=== PATIENT | female | born 1980 | race Two or more races ===

== ENCOUNTER 2022-02-05 10:27 | Emergency (ER) | payer OTHER ==
[~2022-02-05] VITALS: Ht 160 cm; Wt 68.0 kg
== END 2022-02-05 13:15 | disposition home or self-care (01) ==
LOC: ER 10:27
DX: M62.838 Other muscle spasm (principal); M54.9 Dorsalgia, unspecified

== ENCOUNTER 2023-10-12 00:43 | Inpatient (IN) | payer OTHER ==
[~2023-10-12] VITALS: Ht 160 cm; Wt 63.5 kg
[2023-10-12 04:12] LABS: HEMATOCRIT 25.3 % (36.0-45.00); MEAN CELL VOLUME 73.5 fL (80.00-100.00); MEAN CORPUSCULAR HEMOGLOBIN 24.9 pg (27.00-32.0); MEAN CORPUSCULAR HGB CONC 33.9 g/dl (32.0-36.0); PLATELET COUNT 389 K/uL (150-450); RED BLOOD COUNT 3.45 M/uL (4.00-6.00); RED CELL DISTRIBUTION WIDTH 17.2 % (11.5-14.5)
[2023-10-12 04:24] LABS: ALBUMIN 2.8 gm/dL (3.4-5.0); ALKALINE PHOSPHATASE 56 U/L (50-136); ALT/SGPT 32 U/L (12-78); ANION GAP 11 (10.0-20.0); AST/SGOT 40 U/L (15-37); BILIRUBIN TOTAL 0.38 mg/dL (0.3-1.2); BLOOD UREA NITROGEN 4 mg/dL (7-18); BUN CREA RATIO 8 (7.0-25.0); CALCIUM 8.9 mg/dL (8.5-10.1); CARBON DIOXIDE 25 mEq/L (21-32); CHLORIDE 104 mmol/L (98-107); CREATININE SERUM 0.49 mg/dL (0.55-1.02); GFR 136.57; GLUCOSE FASTING 102 mg/dL (65-100); OSMOLALITY SERUM 271 MOSM/KG (275-295); SODIUM 137 mmol/L (136-145); TOTAL PROTEIN 6.8 gm/dL (6.4-8.2)
[2023-10-12 04:27] LABS: HCG QUANTITATIVE < 1 mUI/mL (1-3)
[2023-10-12 04:32] LABS: HEMOGLOBIN 8.6 g/dL (12.0-15.00)
[2023-10-12 04:33] LABS: URINE APPEARANCE Clear; URINE BILIRRUBIN Negative (NEGATIVE); URINE BLOOD Negative; URINE COLOR Yellow; URINE GLUCOSE Negative (NEGATIVE); URINE LEUKOCYTE Negative; URINE NITRATE Negative; URINE PROTEIN Negative (NEGATIVE); URINE UROBILINOGEN 0.2 E.U./dl
[2023-10-12 04:36] LABS: URINE BACTERIA 6.2 uL (0.0-1933); URINE EPITHELIAL CELLS 7.7 uL (0.0-38.8); URINE RBC 6.8 uL (0.0-20.8)
[2023-10-12 04:42] LABS: INR 1.26; PARTIAL THROMBOPLASTIN TIME 32.7 SECONDS (22.0-34.0)
[2023-10-12 15:03] LABS: HEMATOCRIT 27.7 % (36.0-45.00); HEMOGLOBIN 9.3 g/dL (12.0-15.00); MEAN CELL VOLUME 73.9 fL (80.00-100.00); MEAN CORPUSCULAR HEMOGLOBIN 24.8 pg (27.00-32.0); MEAN CORPUSCULAR HGB CONC 33.4 g/dl (32.0-36.0); PLATELET COUNT 432 K/uL (150-450); RED BLOOD COUNT 3.75 M/uL (4.00-6.00); RED CELL DISTRIBUTION WIDTH 17.1 % (11.5-14.5)
[2023-10-14 17:28] LABS: HEMATOCRIT 34.9 % (36.0-45.00); HEMOGLOBIN 11.5 g/dL (12.0-15.00); MEAN CELL VOLUME 77.5 fL (80.00-100.00); MEAN CORPUSCULAR HEMOGLOBIN 25.5 pg (27.00-32.0); MEAN CORPUSCULAR HGB CONC 32.9 g/dl (32.0-36.0); PLATELET COUNT 425 K/uL (150-450); RED CELL DISTRIBUTION WIDTH 17.2 % (11.5-14.5)
[2023-10-16] MEDS ORDERED: MORGIDOX100 MG PO (14:18)
== END 2023-10-16 15:09 | disposition home or self-care (01) | DRG 759 ==
LOC: ER 00:43 → SEC-K 14:42 → OB/GYN 14:42
PROVIDERS: General Practice; ADMIT Obstetrics & Gynecology; ATTEND Obstetrics & Gynecology
PROC: BW21YZZ Computerized Tomography (CT Scan) of Abdomen and Pelvis using Other Contrast (ICD-10-PCS; principal; 2023-10-12)
PROC: BU4CZZZ Ultrasonography of Uterus and Ovaries (ICD-10-PCS; 2023-10-12)
PROC: 30233N1 Transfusion of Nonautologous Red Blood Cells into Peripheral Vein, Percutaneous Approach (ICD-10-PCS; 2023-10-13)
DX: N73.0 Acute parametritis and pelvic cellulitis (principal); Z20.822 Contact with and (suspected) exposure to COVID-19; N73.8 Other specified female pelvic inflammatory diseases; D64.9 Anemia, unspecified; N70.11 Chronic salpingitis